=== PATIENT | male | born 1970 | race Two or more races ===

== ENCOUNTER 2025-03-14 06:50 | Day surgery (SDC) | payer MEDICAID, SELFPAY ==
[2025-03-13 12:39] VITALS: BMI 43.5
[2025-03-14] VITALS (10 sets, daily range): BP systolic 124–156; BP diastolic 85–110; PULSE 58–67; RESP 12–21; TEMP 36.3–36.4; O2SAT 90–99; BMI 44.0
[2025-03-14] MEDS: SODIUM CHLORIDE 0.9% 500 ML 500 ML 125 ML IV (07:42)
[2025-03-14] MEDS: MIDAZOLAM INJ 1 MG/ML VIAL 2 ML (ASD USE ONLY) 2 MG IVP (07:51)
[2025-03-14] MEDS: fentaNYL CIT INJ 50 mCg/ML AMP 2ML (ASD USE ONLY) IVP (07:51)
== END 2025-03-14 08:45 | disposition home or self-care (01) ==
PROVIDERS: Referring Provider Surgery; Visit Provider Surgery
PROC: 0DBE8ZX Excision of Large Intestine, Via Natural or Artificial Opening Endoscopic, Diagnostic (ICD-10-PCS; CPT 45380; principal; 2025-03-14 07:30)
DX: Z12.11 Encounter for screening for malignant neoplasm of colon (principal); D12.3 Benign neoplasm of transverse colon; K64.1 Second degree hemorrhoids; K57.30 Diverticulosis of large intestine without perforation or abscess without bleeding
CPT/HCPCS: 45385; A4649; J1200; J2250; J3010; J7999